=== PATIENT | male | born 1950 | race Caucasian/White ===

== ENCOUNTER 2021-12-15 08:56 | Day surgery (SDC) | payer MEDICARE, BC ==
[~2021-12-15] VITALS: Ht 182.9 cm; Wt 102.2 kg
[2021-12-15] MEDS ORDERED: XALATAN EYE DROPS OU (09:38)
[2021-12-15] MEDS ORDERED: ALPHAGAN OPHTH D5 ML OU (09:38)
[2021-12-15] MEDS ORDERED: COZAAR 50MG50 MG/TAB PO (09:39)
[2021-12-15] MEDS ORDERED: GLUCOPHAGE500 MG/TAB PO (09:39)
[2021-12-15] MEDS ORDERED: PRAVACHOL 40MG40 MG PO (09:40)
[2021-12-15 09:56] VITALS: BP 119/68; PULSE 66; TEMP 96.9
[2021-12-15 11:05] VITALS: BP 109/67; PULSE 56; TEMP 97.8
[2021-12-15 11:20] VITALS: BP 121/69; PULSE 59
[2021-12-15 11:35] VITALS: BP 117/69; PULSE 58
== END 2021-12-15 11:55 | disposition home or self-care (01) ==
LOC: SDCO 08:56
DX: R19.5 Other fecal abnormalities (principal); K64.0 First degree hemorrhoids; E11.39 Type 2 diabetes mellitus with other diabetic ophthalmic complication; H42 Glaucoma in diseases classified elsewhere; Z28.310 Unvaccinated for COVID-19; Z28.9 Immunization not carried out for unspecified reason; Z79.84 Long term (current) use of oral hypoglycemic drugs; Z85.828 Personal history of other malignant neoplasm of skin
CPT/HCPCS: J2704; J7120